=== PATIENT | female | born 1965 | race Caucasian/White ===

== ENCOUNTER → 2023-03-07 | Outpatient (CLI) | payer MEDICAID, SELFPAY ==
--- NOTE | 2023-03-07 15:51 | CT_ITS ---
STUDY: LOW DOSE CT LUNG CANCER SCREENING REASON FOR EXAM: Female, 57 years old. NICOTINE DEPENDENCE RADIATION DOSAGE (If Supplied By Facility): CTDIvol = ( 4.02 ) mGy, DLP = ( 137.43 ) mGycm TECHNIQUE: No contrast was administered. Low dose technique was utilized (average mAS-38 and kVp 120). 1.25 mm axial source images with a slice interval of 1.25-mm were reconstructed in lung windows with coronal and COMPARISON: None NODULES: No suspicious pulmonary nodules. Parenchyma: Mild bilateral apical scarring. No airspace consolidation, effusion, pneumothorax. Mild scattered subsegmental atelectasis in the lower lungs. No endobronchial lesion. Minimal bilateral peribronchial thickening. Aorta: Mild atherosclerosis without ectasia. CORONARY ARTERIES: Moderate multivessel coronary atherosclerosis. Heart: No cardiomegaly no pericardial effusion. Pulmonary artery: No main pulmonary arterial enlargement. Mediastinal nodes: Scattered mediastinal lymph nodes up to 1.1 cm in short axis, pretracheal. Subcentimeter bilateral hilar lymph nodes are also noted. Other chest and abdominal findings: Unremarkable esophagus and imaged portion of the upper abdomen CT/Low Dose CT Lung Screening IMPRESSION: No suspicious pulmonary nodules. Minimal peribronchial thickening as can be seen with acute or chronic bronchitis. Lung-RADS category 1 - Continue annual screening with LDCT in 12 months. IMPORTANT NOTES FOR USE: ACR Lung-RADS Version 1.1 Assessment Categories Release Date: 2018 Category: Coded 0-4 bases on nodule(s) with highest degree of suspicion. Negative screen is defined as categories 1 and 2; a positive screen is defined as categories 3 and 4. Category 3 and 4A nodules that are unchanged on interval CT should be coded as category 2, and individuals returned to screening in 12 months. Category 4X: Category 3 or 4 nodules with additional imaging findings that increase the suspicion of lung cancer, such as spiculation, GGN that doubles in size in 1 year, enlarged lymph notes, etc. Category Modifiers: S (significant finding unrelated to lung cancer) Electronically Signed: Vish Portillo MD at 7:11 EDT ,
== END | disposition home or self-care (01) ==
LOC: CT 15:50
DX: F17.210 Nicotine dependence, cigarettes, uncomplicated (principal)
CPT/HCPCS: 71271

== ENCOUNTER → 2023-05-21 | Outpatient (CLI) | payer MEDICAID, SELFPAY ==
--- NOTE | 2023-05-21 11:51 | US_ITS ---
STUDY: RENAL ULTRASOUND - COMPLETE REASON FOR EXAM: Female, 57 years old. CHRONIC KIDNEY DISEASE TECHNIQUE: Ultrasound evaluation of the kidneys was performed with real-time and static win-scale imaging. COMPARISON: None. FINDINGS: RIGHT KIDNEY: Normal location of the right kidney, which is normal in size. The right kidney measures 12.7 cm x 5.3 cm x 4.8 cm. There is a normal cortex of the right kidney. The renal cortex measures 1.3 cm. There is no right renal mass or cyst. There are no right renal calculi. There is no right hydronephrosis. DISTAL RIGHT URETER: There is non-visualization of the distal right ureter. There is no demonstrated right ureterovesical junction calculus. There is no demonstrated right ureteral jet. LEFT KIDNEY: Normal location of the left kidney, which is normal in size. The left kidney measures 12.1 cm x 4.1 cm x 5.6 cm. There is a normal cortex of the left kidney. The renal cortex measures 1.5 cm. There is no left renal mass or cyst. There are no left renal calculi. There is no left hydronephrosis. DISTAL LEFT URETER: There is non-visualization of the distal left ureter. There is no demonstrated left ureterovesical junction calculus. There is no demonstrated left ureteral jet. BLADDER: The distended urinary bladder has a volume of 61 ml. There is a normal wall thickness of the distended urinary bladder. There is no demonstrated mass within the urinary bladder. There are no demonstrated bladder calculi. US/Kidney and Bladder IMPRESSION: Normal ultrasound of the kidneys and urinary bladder. Electronically Signed: Vincent Epperson MD at 15:11 EDT ,
== END | disposition home or self-care (01) ==
LOC: US 11:49
PROVIDERS: Referring Provider Internal Medicine Nephrology; Visit Provider Internal Medicine Nephrology
DX: N18.31 Chronic kidney disease, stage 3a (principal)
CPT/HCPCS: 76770

== ENCOUNTER → 2023-07-09 | Outpatient (CLI) | payer OTHER, SELFPAY ==
[2023-07-09 12:02] LABS: Bacteria 0 SEEN /hpf (None Seen); Mucous, Urine 0 SEEN /hpf (<or=2+); Red Blood Cells-Urine 0 SEEN /hpf (0-5)
[2023-07-09 12:52] LABS: Anion Gap 4 (5-15); BUN 5 mg/dL (7-18); BUN/Creat Ratio 4.1 RATIO (10-20); Calcium,Total 8.9 mg/dL (8.5-10.1); Chloride 103 mmol/L (98-107); Creatinine, Serum 1.21 mg/dL (0.55-1.02); EST Glomerular Filtration Rate 49 mL/min (>60); Est Glom Filt Rate - Afr Amer 59 mL/min (>60); Glucose 115 mg/dL (74-106); Potassium 4.8 mmol/L (3.5-5.1); Sodium Level 138 mmol/L (136-145)
[2023-07-09 13:33] LABS: Color, Urine Yellow (Yellow); Glucose, Dipstick Normal (Normal); Ketone-Dipstick Negative (Negative); Leukocyte Esterase-Dipstick 25 /ul (Negative); Nitrite-Dipstick Negative (Negative); Occult Blood-Urine Negative /ul (Negative); Protein-Dipstick Negative (Negative); Urine Bilirubin Dipstick Negative (Negative); Urine Clarity Sl. Cloudy (Clear); Urine Urobilinogen Normal (Normal)
[2023-07-09 13:41] LABS: Squamous Epithelial Cells - UA 0-5 SEEN /hpf (5-10); White Blood Cells 0-5 SEEN /hpf (0-5)
[2023-07-09 14:07] LABS: Protein:Creat Ratio 119 mg/g CRE (0-200)
== END | disposition home or self-care (01) ==
LOC: LAB 11:58
PROVIDERS: Referring Provider Internal Medicine Nephrology; Visit Provider Internal Medicine Nephrology
DX: N18.31 Chronic kidney disease, stage 3a (principal)
CPT/HCPCS: 36415; 80048; 81001; 82570; 84156

== ENCOUNTER → 2023-12-16 | Outpatient (CLI) | payer MEDICAID, SELFPAY ==
--- NOTE | 2023-12-16 13:13 | MRI_ITS ---
STUDY: MRI RIGHT KNEE REASON FOR EXAM: Female, 58 years old. Pain. TECHNIQUE: Standardized fat and water weighted pulse sequences were obtained in all 3 orthogonal planes. COMPARISON: Right knee radiographs dated 11/11/2023. FINDINGS: There is a well-defined bone lesion in the medial tibial plateau, overall measuring 2.1 cm AP, 2.0 cm transverse, and 2.3 cm craniocaudad. There is a pathologic tibial plateau fracture at the superior margin of the bone lesion with 1 mm articular surface depression. There is a partial radial tear of the body and posterior horn of the medial meniscus. There is degenerative arthrosis of the medial femorotibial compartment with joint space narrowing, marginal osteophyte formation, and moderate to high-grade chondromalacia. Normal medial collateral ligamentous complex (MCL). Normal distal semimembranosus, gracilis and semitendinosus tendons. Normal lateral meniscus. Normal hyaline cartilage of the lateral femorotibial compartment. There is mild osteoarthritic spur formation of the lateral knee compartment. Normal proximal tibiofibular articulation. Normal lateral collateral ( fibular ) ligament. Normal popliteus tendon. Normal biceps femoris tendon. Normal anterior cruciate ligament (ACL). Normal posterior cruciate ligament (PCL). There is degenerative arthrosis of the patellofemoral compartment with joint space narrowing, marginal osteophyte formation, and moderate to high-grade patellofemoral chondromalacia. Normal medial and lateral patellar retinaculum. Normal quadriceps tendon. Normal patellar tendon. Normal Hoffa''s fat pad. There is a moderate volume joint effusion. There is no popliteal cyst. MRI/Lower Ext Joint Only (Routine) IMPRESSION: 2.1 x 2.0 x 2.3 cm well-defined bone lesion in the medial tibial plateau. Pathologic tibial plateau fracture at the superior margin of the bone lesion with 1 mm articular surface depression. Biopsy/excision would be required to establish the definitive histological diagnosis. Partial radial tear of the body and posterior horn of the medial meniscus. 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 Moderate joint effusion. Electronically Signed: Orville Weeks MD at 15:36 EST Reading Location ID and State: [facility] / [place] , Service support ,
== END | disposition home or self-care (01) ==
LOC: MRI 13:10
PROVIDERS: Referring Provider Orthopaedic Surgery; Visit Provider Orthopaedic Surgery
DX: S82.131A Displaced fracture of medial condyle of right tibia, initial encounter for closed fracture (principal); M17.11 Unilateral primary osteoarthritis, right knee; M89.9 Disorder of bone, unspecified; S83.241A Other tear of medial meniscus, current injury, right knee, initial encounter
CPT/HCPCS: 73721